=== PATIENT | female | born 1990 | race Hispanic/Latino ===

== ENCOUNTER 2016-12-18 12:09 | Emergency (ER) | payer MEDICAID, SELFPAY ==
--- NOTE | 2016-12-18 12:59 | CT ---
CT OF CERVICAL SPINE PERFORMED WITHOUT CONTRAST ENHANCEMENT: Date: 12/18/16 HISTORY: Neck injury. FINDINGS: Vertebral bodies are normal in height. Disc spaces all appear well preserved and the facets are in n ormal alignment. There is no evidence of canal or foraminal stenosis. There is no CT evidence of fra cture. IMPRESSION: No CT evidence of fracture of the cervical spine. POS: [facility]
--- NOTE | 2016-12-18 13:00 | CT ---
CT OF BRAIN PERFORMED WITHOUT CONTRAST ENHANCEMENT: HISTORY: Head injury. FINDINGS: The ventricular and cisternal system is within normal limits. There are no signs of intracerebral h emorrhage or extraaxial fluid collection. The mastoid air cells and visualized sinuses are clear. IMPRESSION: No acute intracranial abnormalities. POS: [facility]
[2016-12-18 13:10] LABS: #Eosinphils 0.1 thou/uL (0.0-0.7); #Lymphocytes 1.4 thou/uL (1.20-3.40); #Monocytes 0.5 thou/uL (0.11-0.59); #Neutrophils 7.8 thou/uL (1.40-6.50); %Basophils 0.2 % (0.0-1.0); %Eosinophils 1.2 % (0.0-10.0); %Lymphocytes 14.5 % (21.0-51.0); %Monocytes 4.6 % (0.0-10.0); Hematocrit 38.5 % (36.0-47.0); Mean Platelet Volume 8.3 fL (7.4-10.4); Red Blood Cell (RBC) Count 4.44 mill/uL (4.20-5.40); White Blood Cell (WBC) Count 9.9 thou/uL (4.8-10.8)
--- NOTE | 2016-12-18 13:11 | RAD ---
2 VIEWS LEFT HIP: Date: 12/18/16 COMPARISON: None. HISTORY: Left hip pain after injury. Patient had syncope and fell. FINDINGS: Two views of the left hip show no evidence of acute fracture or dislocation. No degenerative changes are seen. No soft tissue swelling is present. IMPRESSION: Unremarkable exam. POS: [facility] [place]
--- NOTE | 2016-12-18 13:12 | RAD ---
2 VIEWS LEFT ELBOW: Date: 12/18/16 COMPARISON: None. HISTORY: Fall and hit elbow with left elbow pain. FINDINGS: Two views of the left elbow show no evidence of acute fracture or dislocation. No degenerative zuleta es are seen. No elbow effusion is present. IMPRESSION: No evidence of acute osseous abnormality. POS: [facility]
[2016-12-18 13:35] LABS: ALT (SGPT) 15 U/L (8-55); AST (SGOT) 16 U/L (5-34); Alkaline Phosphatase 74 U/L (40-150); Anion Gap 12 mmol/L (10-20); BUN (Urea Nitrogen) 12 mg/dL (7.0-18.7); Bilirubin, Total 0.5 mg/dL (0.2-1.2); Calc. Creatinine Clearance 0 mL/min (70-130); Calcium 9.4 mg/dL (7.8-10.44); Carbon Dioxide 24 mmol/L (22-29); Chloride 104 mmol/L (98-107); Estimated GFR-MDRD 87; Globulin 2.9 g/dL (2.4-3.5); Lipase 6 U/L (8-78)
[2016-12-18 14:13] LABS: Bilirubin Negative (Negative); Blood, Urine Moderate (Negative); Glucose, Urine (Dipstick) Negative (Negative); Ketone, Urine Trace mg/dL (Negative); Nitrite Negative (Negative); Protein, Urine (Dipstick) Negative (Neg-Trace); Urobilinogen 0.2 mg/dL (0.2-1.0)
[2016-12-18 14:15] LABS: Bacteria/HPF None Seen HPF (None Seen); Hyaline Casts/LPF 4-6 HYALINE CAST LPF (0-3 Hyaline); RBC/HPF 21-50 HPF (0-3); Squamous Epithelial 0-3 HPF (0-3); WBC/HPF 0-3 HPF (0-3)
== END 2016-12-18 14:40 | disposition home or self-care (01) ==
LOC: ERS 12:09
DX: S00.03XA Contusion of scalp, initial encounter (principal); R55 Syncope and collapse; W01.10XA Fall on same level from slipping, tripping and stumbling with subsequent striking against unspecified object, initial encounter
CPT/HCPCS: 36415; 70450; 72125; 80053; 81003; 81015; 81025; 83690; 85025; 93005

== ENCOUNTER 2021-06-05 17:52 | Emergency (ER) | payer BC, OTHER, SELFPAY ==
[2021-06-05] MEDS ORDERED: Dicyclomine 20 MG TAB ONE (18:19)
[2021-06-05] MEDS ORDERED: Ondansetron PF 4 MG/2 ML Vial ONE (18:19)
[2021-06-05 18:44] LABS: Bilirubin Negative (Negative); Blood, Urine Negative (Negative); Clarity Turbid (Clear); Glucose, Urine (Dipstick) Normal (Negative); Ketone, Urine 10 mg/dL (Negative); Leukocyte 75 Leu/uL (Negative); Mucous/LPF Rare LPF (<2+); Nitrite Negative (Negative); Pregnancy Test - Urine (BHCG) Negative (Negative); Pregu Control Background? CLEAR/WHITE (CLR/WHITE); Pregu Control Bar Appear? YES (CONTROL BAR); Protein, Urine (Dipstick) 30 mg/dL (Neg-Trace); Renal Epithelial 0-3 HPF (None Seen); Specific Gravity 1.027 (1.002-1.036); Specific Gravity, Urine 1.027 (1.002-1.036); Urobilinogen Normal mg/dL (Less than 2)
[2021-06-05 18:47] LABS: #Eosinphils 0.1 thou/uL (0.0-0.7); #Lymphocytes 1.1 thou/uL (1.20-3.40); #Monocytes 0.5 thou/uL (0.11-0.59); #Neutrophils 11.8 thou/uL (1.40-6.50); %Basophils 0.3 % (0.0-1.0); %Eosinophils 0.6 % (0.0-10.0); %Lymphocytes 8.1 % (21.0-51.0); %Monocytes 3.5 % (0.0-10.0); %Neutrophils 87.5 % (42.0-75.0); Hemoglobin 14.2 g/dL (12.0-16.0); Mean Corpuscular HGB CONC 32.8 g/dL (32.0-36.0); Mean Corpuscular Hemoglobin 26.5 pg (27.0-31.0); Mean Corpuscular Volume 80.6 fL (78.0-98.0); Mean Platelet Volume 8.2 fL (7.4-10.4); Platelet Count 323 thou/uL (130-400); RBC Distribution Width 16.1 % (11.5-14.5); Red Blood Cell (RBC) Count 5.37 mill/uL (4.20-5.40); White Blood Cell (WBC) Count 13.5 thou/uL (4.8-10.8)
[2021-06-05 18:54] LABS: Bacteria/HPF 4+ HPF (None Seen)
[2021-06-05 19:02] LABS: ALT (SGPT) 18 U/L (8-55); AST (SGOT) 17 U/L (5-34); Albumin 4.3 g/dL (3.5-5.0); Alkaline Phosphatase 83 U/L (40-110); Anion Gap 16 mmol/L (10-20); BUN (Urea Nitrogen) 11 mg/dL (7.0-18.7); Bilirubin, Total 0.4 mg/dL (0.2-1.2); Calc. Creatinine Clearance 0 mL/min (70-130); Carbon Dioxide 19 mmol/L (22-29); Chloride 104 mmol/L (98-107); Globulin 3.7 g/dL (2.4-3.5); Glucose 94 mg/dL (70-105); Lipase 12 U/L (8-78); Sodium 135 mmol/L (136-145)
== END 2021-06-05 19:40 | disposition home or self-care (01) ==
LOC: ERS 17:52
DX: R11.2 Nausea with vomiting, unspecified (principal); R19.7 Diarrhea, unspecified
CPT/HCPCS: 36415; 80053; 81003; 81015; 81025; 83690; 85025; 96374; J2405